=== PATIENT | female | born 1995 | race American Indian/Alaskan Native ===

== ENCOUNTER 2019-06-26 07:23 | Emergency (ER) | payer MEDICAID, OTHER ==
--- NOTE | 2019-06-26 07:48 | Emergency Department Report ---
HPI - General Time Seen by Provider: 06/26/19 07:32 PUI?: No - HPI HPI: Room 2 The patient is a 24-year-old female present with chief complaint of combative behavior. The patient carries no known psychiatric or medical diagnoses and reportedly became violent at home today. EMS states the mother informed them that the patient was acting out at the house behaving violently and "breaking things." The patient was combative with EMS and required sedation with Benadryl 50 mg, Haldol 5 mg and Versed 5 mg prior to arrival. Patient is sedated and slow to respond upon arrival to the ED. Patient complains of a headache. ED Past Medical Hx - Past Medical History Previous Medical History?: No Hx Asthma: Yes - Surgical History Past Surgical History?: No - Family History Family history: no significant - Social History Smoking Status: Never Smoker Substance Use Type: None - Medications Home Medications: Home Medications Medication Instructions Recorded Confirmed Last Taken Type No Known Home Medications [No 06/26/19 06/26/19 Unknown History Reported Home Medications] ED Review of Systems ROS: Stated complaint: MH EVAL Other details as noted in HPI Neurological: headache Psychiatric: other (Violent behavior) Physical Exam - Physical Exam Vital Signs: Vital Signs 06/26/19 06/26/19 06/26/19 07:48 14:20 18:24 Temperature 98 F 98.7 F Pulse Rate 90 71 90 Respiratory 16 18 20 Rate Blood Pressure 110/69 Blood Pressure 112/72 110/74 [Left] O2 Sat by Pulse 96 100 100 Oximetry 06/26/19 06/27/19 19:40 01:00 Temperature 98.4 F 98.4 F Pulse Rate 104 H 86 Respiratory 18 18 Rate Blood Pressure Blood Pressure 120/63 99/71 [Left] O2 Sat by Pulse 99 99 Oximetry Physical Exam: GENERAL: The patient is well-developed well-nourished female lying on stretcher not appearing to be in acute distress. Appears groggy but responds to questions occasionally HEENT: Normocephalic. Atraumatic. Extraocular motions are intact. Patient has moist mucous membranes. NECK: Supple. Trachea midline CHEST/LUNGS: Clear to auscultation. There is no respiratory distress noted. HEART/CARDIOVASCULAR: Regular. There is no tachycardia. There is no gallop rub or murmur. ABDOMEN: Abdomen is soft, nontender. Patient has normal bowel sounds. There is no abdominal distention. SKIN: There is no rash. There is no edema. There is no diaphoresis. NEURO: The patient is asleep but awakens with tactile stimuli. The patient is cooperative. The patient has no focal neurologic deficits. The patient has normal speech MUSCULOSKELETAL: There is no evidence of acute injury. ED Medical Decision Making - Lab Data Result diagrams: 06/26/19 07:50 06/26/19 07:50 Laboratory Tests 06/26/19 06/26/19 06/26/19 07:50 07:50 07:50 WBC 5.5 RBC 4.58 Hgb 11.7 Hct 36.0 MCV 79 MCH 26 L MCHC 33 RDW 14.5 Plt Count 272 Lymph % (Auto) 14.0 Preble % (Auto) 5.9 Eos % (Auto) 0.2 Baso % (Auto) 0.3 Lymph # 0.8 L Preble # 0.3 Eos # 0.0 Baso # 0.0 Seg Neutrophils % 79.6 H Seg Neutrophils # 4.4 Sodium 139 Potassium 3.3 L Chloride 101.0 Carbon Dioxide 19 L Anion Gap 22 BUN 8 Creatinine 0.9 Estimated GFR > 60 BUN/Creatinine Ratio 9 Glucose 103 H Calcium 9.3 Total Bilirubin 0.60 AST 17 ALT 10 Alkaline Phosphatase 36 Total Protein 7.9 Albumin 4.5 Albumin/Globulin Ratio 1.3 TSH 2.010 Free T4 1.51 H HCG, Qual Urine Color Urine Turbidity Urine pH Ur Specific Edwards Urine Protein Urine Glucose (UA) Urine Ketones Urine Blood Urine Nitrite Urine Bilirubin Urine Urobilinogen Ur Leukocyte Esterase Urine WBC (Auto) Urine RBC (Auto) U Epithel Cells (Auto) Urine Bacteria (Auto) Urine Mucus Salicylates Urine Opiates Screen Urine Methadone Screen Acetaminophen Ur Barbiturates Screen Ur Phencyclidine Scrn Ur Amphetamines Screen U Benzodiazepines Scrn Urine Cocaine Screen U Marijuana (THC) Screen Drugs of Abuse Note Plasma/Serum Alcohol 06/26/19 06/26/19 06/26/19 07:50 07:50 07:50 WBC RBC Hgb Hct MCV MCH MCHC RDW Plt Count Lymph % (Auto) Preble % (Auto) Eos % (Auto) Baso % (Auto) Lymph # Preble # Eos # Baso # Seg Neutrophils % Seg Neutrophils # Sodium Potassium Chloride Carbon Dioxide Anion Gap BUN Creatinine Estimated GFR BUN/Creatinine Ratio Glucose Calcium Total Bilirubin AST ALT Alkaline Phosphatase Total Protein Albumin Albumin/Globulin Ratio TSH Free T4 HCG, Qual Urine Color Urine Turbidity Urine pH Ur Specific Edwards Urine Protein Urine Glucose (UA) Urine Ketones Urine Blood Urine Nitrite Urine Bilirubin Urine Urobilinogen Ur Leukocyte Esterase Urine WBC (Auto) Urine RBC (Auto) U Epithel Cells (Auto) Urine Bacteria (Auto) Urine Mucus Salicylates < 0.3 L Urine Opiates Screen Urine Methadone Screen Acetaminophen < 5.0 L Ur Barbiturates Screen Ur Phencyclidine Scrn Ur Amphetamines Screen U Benzodiazepines Scrn Urine Cocaine Screen U Marijuana (THC) Screen Drugs of Abuse Note Plasma/Serum Alcohol < 0.01 06/26/19 06/26/19 06/26/19 07:50 15:00 15:00 WBC RBC Hgb Hct MCV MCH MCHC RDW Plt Count Lymph % (Auto) Preble % (Auto) Eos % (Auto) Baso % (Auto) Lymph # Preble # Eos # Baso # Seg Neutrophils % Seg Neutrophils # Sodium Potassium Chloride Carbon Dioxide Anion Gap BUN Creatinine Estimated GFR BUN/Creatinine Ratio Glucose Calcium Total Bilirubin AST ALT Alkaline Phosphatase Total Protein Albumin Albumin/Globulin Ratio TSH Free T4 HCG, Qual Negative Urine Color Yellow Urine Turbidity Clear Urine pH 6.0 Ur Specific Edwards 1.008 Urine Protein 30 mg/dl Urine Glucose (UA) Neg Urine Ketones Tr Urine Blood Neg Urine Nitrite Neg Urine Bilirubin Neg Urine Urobilinogen < 2.0 Ur Leukocyte Esterase Neg Urine WBC (Auto) 3.0 Urine RBC (Auto) 1.0 U Epithel Cells (Auto) 3.0 Urine Bacteria (Auto) 1+ Urine Mucus Few Salicylates Urine Opiates Screen Presumptive negative Urine Methadone Screen Presumptive negative Acetaminophen Ur Barbiturates Screen Presumptive negative Ur Phencyclidine Scrn Presumptive negative Ur Amphetamines Screen Presumptive negative U Benzodiazepines Scrn Presumptive positive Urine Cocaine Screen Presumptive negative U Marijuana (THC) Screen Presumptive positive Drugs of Abuse Note Disclamer Plasma/Serum Alcohol - Radiology Data Radiology results: report reviewed (CT Head), image reviewed (CT head) [facility] [address] [place] [address] Cat Scan Report Signed Patient: BRIDGET TRAYLOR MR#: [id number] : 1995 Acct:[id number] Age/Sex: 24 / F ADM Date: 06/26/19 Loc: ED Attending Dr: Ordering Physician: NORMAN COUCH MD Date of Service: 06/26/19 Procedure(s): CT head/brain wo con Accession Number(s): [id number] cc: NORMAN COUCH MD CT head without contrast INDICATION : Violent behavior-medical Clearance Psych. TECHNIQUE: Axial imaging performed from the skull apex through the skull base without the use of contrast. All CT scans at this location are performed using CT dose reduction for ALARA by means of automated exposure control. COMPARISON: None FINDINGS: Parenchyma: No acute intracranial hemorrhage or parenchymal abnormality. There is a 5 mm rounded slightly hyperdense structure in the midline involving the third ventricle on axial image 12 of series 2, most likely a colloid cyst. Ventricles: Ventricles are normal in size and appear symmetric. Soft tissues: Soft tissues including the orbits appear normal. Bones: No acute osseous abnormality. Sinuses: Sinuses and mastoid air cells are clear. IMPRESSION: No acute abnormality. 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 Signer Name: Claudio Kolb MD Signed: 06/26/2019 9:21 AM Workstation Name: [id number] Transcribed By: STACI Dictated By: Claudio Kolb MD Electronically Authenticated By: Claudio Kolb MD Signed Date/Time: 06/26/19920 DD/ 6 TD/TT: - Differential Diagnosis Altered mental status, violent behavior, schizophrenia, bipolar disorder, Critical care attestation.: If time is entered above; I have spent that time in minutes in the direct care of this critically ill patient, excluding procedure time. ED Disposition Clinical Impression: Combative behavior Disposition: DC/TX-70 ANOTHER TYPE HLTHCARE Is pt being admited?: No Does the pt Need Aspirin: No Condition: Stable Referrals: PRIMARY CARE, [Primary Care Provider] - 3-5 Days
[2019-06-26 08:06] LABS: Basophils % (Auto) 0.3 % (0.0-1.8); Eosinophils % (Auto) 0.2 % (0.0-4.3); Hemoglobin 11.7 gm/dl (10.1-14.3); Lymphocytes # (Auto) 0.8 K/mm3 (1.2-5.4); Mean Corpuscular HGB Conc 33 % (30-34); Mean Corpuscular Volume 79 fl (79-97); Monocytes # (Auto) 0.3 K/mm3 (0.0-0.8); Monocytes % (Auto) 5.9 % (0.0-7.3); Platelet Count 272 K/mm3 (140-440); Red Blood Count 4.58 M/mm3 (3.65-5.03); Red Cell Distribution Width 14.5 % (13.2-15.2)
[2019-06-26 08:33] LABS: Alanine Aminotransferase 10 units/L (7-56); Albumin 4.5 g/dL (3.9-5); BUN/Creatinine Ratio 9; Blood Urea Nitrogen 8 mg/dL (7-17); Calcium 9.3 mg/dL (8.4-10.2); Hemolysis Index 25
[2019-06-26 08:40] LABS: Free T4 (Free Thyroxine) 1.51 ng/dL (0.76-1.46)
[2019-06-26] MEDS ORDERED: POTASSIUM CHLORIDE ER 20 MEQ TAB PO ONE (08:49)
--- NOTE | 2019-06-26 09:25 | Cat Scan Report ---
CT head without contrast INDICATION : Violent behavior-medical Clearance Psych. TECHNIQUE: Axial imaging performed from the skull apex through the skull base without the use of con trast. All CT scans at this location are performed using CT dose reduction for ALARA by means of aut omated exposure control. COMPARISON: None FINDINGS: Parenchyma: No acute intracranial hemorrhage or parenchymal abnormality. There is a 5 mm rounded sli ghtly hyperdense structure in the midline involving the third ventricle on axial image 12 of series 2 , most likely a colloid cyst. Ventricles: Ventricles are normal in size and appear symmetric. Soft tissues: Soft tissues including the orbits appear normal. Bones: No acute osseous abnormality. Sinuses: Sinuses and mastoid air cells are clear. IMPRESSION: No acute abnormality. 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 Signer Name: Claudio Kolb MD Signed: 06/26/2019 9:21 AM Workstation Name: [id number]
[2019-06-26 15:25] LABS: Amphetamine Screen,Urine PRESUMPTIVE NEGATIVE; Cocaine Screen,Urine PRESUMPTIVE NEGATIVE; Methadone Screen,Urine PRESUMPTIVE NEGATIVE; Opiate Screen,Urine PRESUMPTIVE NEGATIVE
[2019-06-26 15:37] LABS: Bacteria,Urine 1+ /HPF (Negative); Bilirubin,Urine NEG (Negative); Blood,Urine NEG (Negative); Color,Urine Yellow (Yellow); Mucus,Urine FEW /HPF; Urobilinogen,Urine < 2.0 mg/dL (<2.0)
[2019-06-26 15:38] LABS: Benzodiazepines Screen,Urine PRESUMPTIVE POSITIVE; Cannabinoid Screen,Urine PRESUMPTIVE POSITIVE
[2019-06-27 02:17] VITALS: BP 99/71
== END 2019-06-27 01:00 | disposition other institution (70) ==
LOC: ED 07:23
DX: R46.2 Strange and inexplicable behavior (principal); R51 Headache; J45.909 Unspecified asthma, uncomplicated; Z79.899 Other long term (current) drug therapy
CPT/HCPCS: 36415; 70450; 80053; 80307; 80320; 81001; 84439; 84443; 84703; 85025; G0480

== ENCOUNTER 2019-07-23 05:35 | Emergency (ER) | payer MEDICAID ==
[2019-07-23] MEDS ORDERED: ZIPRASIDONE MESYLATE 20 MG VIAL IM PRN (06:52)
[2019-07-23 07:01] LABS: Bilirubin,Urine NEG (Negative); Blood,Urine NEG (Negative); Color,Urine Yellow (Yellow); Mucus,Urine FEW /HPF; Protein,Urine <15 mg/dL mg/dL (Negative); Urobilinogen,Urine < 2.0 mg/dL (<2.0)
[2019-07-23 07:08] LABS: Amphetamine Screen,Urine PRESUMPTIVE NEGATIVE; Benzodiazepines Screen,Urine PRESUMPTIVE NEGATIVE; Cocaine Screen,Urine PRESUMPTIVE NEGATIVE; Methadone Screen,Urine PRESUMPTIVE NEGATIVE; Opiate Screen,Urine PRESUMPTIVE NEGATIVE
--- NOTE | 2019-07-23 07:23 | Emergency Department Report ---
ED Psych HPI - General Chief Complaint: Psych Stated Complaint: CAITLIN JAIME Time Seen by Provider: 07/23/19 06:27 Source: EMS Mode of arrival: Ambulatory - History of Present Illness Initial Comments: This is a 24-year-old female who although copacetic right now appears to be delusional and minimizing her psychiatric condition. He states he does not know why she is here right now. She states that she has a depression. However, she appears to be delusional stating that her baby is due in September. According to the records she was transported via EMS after her family dialed 911. She was "punching the air". Patient cannot tell me what medication she has been previously prescribed. However, she is now noncompliant. She is able to tell me that she was admitted to [facility] in May. Complaint: other (Delusional and agitated) -: unknown (Limited information available to me) Associated Psychiatric Symptoms: delusions History of same: Yes Quality: intermittent Improves With: none Worsens With: none Associated Symptoms: denies other symptoms Treatments Prior to Arrival: none, placed on mental he - Related Data Home Medications Medication Instructions Recorded Confirmed Last Taken No Known Home Medications [No 06/26/19 07/23/19 Unknown Reported Home Medications] Allergies Allergy/AdvReac Type Severity Reaction Status Date / Time No Known Allergies Allergy Verified 07/23/19 06:13 ED Review of Systems ROS: Stated complaint: CAITLIN EVAVERY Other details as noted in HPI Comment: Unobtainable due to pts medical conditions (Patient has no active complaints) ED Past Medical Hx - Past Medical History Hx Psychiatric Treatment: Yes ( Depression) Hx Asthma: Yes - Social History Smoking Status: Never Smoker Substance Use Type: None - Medications Home Medications: Home Medications Medication Instructions Recorded Confirmed Last Taken Type No Known Home Medications [No 06/26/19 07/23/19 Unknown History Reported Home Medications] ED Physical Exam - General Limitations: No Limitations General appearance: alert, in no apparent distress - Head Head exam: Present: atraumatic, normocephalic - Eye Eye exam: Present: normal appearance. Absent: scleral icterus - ENT ENT exam: Present: mucous membranes moist - Neck Neck exam: Present: normal inspection - Respiratory Respiratory exam: Present: normal lung sounds bilaterally. Absent: respiratory distress - Cardiovascular Cardiovascular Exam: Present: regular rate, normal rhythm. Absent: systolic murmur, diastolic murmur, rubs, gallop - GI/Abdominal GI/Abdominal exam: Present: soft, normal bowel sounds. Absent: distended, tenderness, guarding, rebound - Extremities Exam Extremities exam: Present: normal inspection - Back Exam Back exam: Present: normal inspection - Neurological Exam Neurological exam: Present: alert, oriented X3, CN II-XII intact. Absent: motor sensory deficit - Psychiatric Psychiatric exam: Present: normal mood, flat affect - Skin Skin exam: Present: warm, dry, intact, normal color. Absent: rash ED Course Vital Signs 07/23/19 07/23/19 07/23/19 06:11 06:30 07:57 Temperature 97.9 F 98.1 F Pulse Rate 97 H 91 H Respiratory 20 18 17 Rate Blood Pressure 129/81 111/74 Blood Pressure [Left] O2 Sat by Pulse 100 99 Oximetry 07/23/19 07/23/19 08:13 09:21 Temperature 98.2 F Pulse Rate 91 H Respiratory 16 17 Rate Blood Pressure Blood Pressure 117/74 [Left] O2 Sat by Pulse 97 Oximetry - Reevaluation(s) Reevaluation #1: Patient has been ordered Geodon as needed. Further information is necessary. I would not be surprised if she requires involuntary confinement. At this point we will let mental health evaluate her. 07/23/19 07:22 ED Medical Decision Making - Lab Data Result diagrams: 07/23/19 07:09 07/23/19 07:09 Critical care attestation.: If time is entered above; I have spent that time in minutes in the direct care of this critically ill patient, excluding procedure time. ED Disposition Clinical Impression: Acute psychosis, Violent behavior Schizophrenia Qualifiers: Schizophrenia type: unspecified Qualified Code(s): F20.9 - Schizophrenia, unspecified Disposition: DC/TX-65 PSY HOSP/PSY UNIT Is pt being admited?: No Does the pt Need Aspirin: No Condition: Stable Referrals: PRIMARY CARE, [Primary Care Provider] - 3-5 Days Time of Disposition: 13:15
[2019-07-23 07:34] LABS: Basophils % (Auto) 0.4 % (0.0-1.8); Eosinophils % (Auto) 0.5 % (0.0-4.3); Hemoglobin 11.2 gm/dl (10.1-14.3); Lymphocytes # (Auto) 1.4 K/mm3 (1.2-5.4); Lymphocytes % (Auto) 22.9 % (13.4-35.0); Mean Corpuscular HGB Conc 33 % (30-34); Mean Corpuscular Volume 79 fl (79-97); Monocytes # (Auto) 0.5 K/mm3 (0.0-0.8); Monocytes % (Auto) 7.3 % (0.0-7.3); Platelet Count 268 K/mm3 (140-440); Red Blood Count 4.29 M/mm3 (3.65-5.03); Red Cell Distribution Width 14.6 % (13.2-15.2)
[2019-07-23 07:41] LABS: Cannabinoid Screen,Urine PRESUMPTIVE POSITIVE
[2019-07-23 08:05] LABS: BUN/Creatinine Ratio 9; Blood Urea Nitrogen 6 mg/dL (7-17); Calcium 9.5 mg/dL (8.4-10.2); Hemolysis Index 2
[2019-07-23 09:25] VITALS: BP 117/74
== END 2019-07-23 14:24 ==
LOC: EEVIPCON 05:35 → ED 05:35
DX: F20.9 Schizophrenia, unspecified (principal); R45.6 Violent behavior; J45.901 Unspecified asthma with (acute) exacerbation; Z79.899 Other long term (current) drug therapy
CPT/HCPCS: 36415; 80048; 80307; 80320; 81001; 84703; 85025; G0480

== ENCOUNTER 2020-03-05 13:14 | Emergency (ER) | payer MEDICAID | END 2020-03-05 15:39 | disposition left against medical advice (07) | LOC: ED 13:14 | DX: Z00.8 Encounter for other general examination (principal); Z53.21 Procedure and treatment not carried out due to patient leaving prior to being seen by health care provider ==

== ENCOUNTER 2021-09-27 14:11 | Emergency (ER) | payer MEDICAID ==
[2021-09-27 17:02] LABS: Blood Urea Nitrogen 13 mg/dL (7-17); Calcium 9.4 mg/dL (8.4-10.2); Hemolysis Index 6
[2021-09-27 17:04] LABS: Basophils % (Auto) 0.5 % (0.0-1.8); Eosinophils # (Auto) 0.1 K/mm3 (0.0-0.4); Hematocrit 32.5 % (30.3-42.9); Hemoglobin 10.8 gm/dl (10.1-14.3); Lymphocytes # (Auto) 1.9 K/mm3 (1.2-5.4); Mean Corpuscular HGB Conc 33 % (30-34); Mean Corpuscular Volume 79 fl (79-97); Monocytes # (Auto) 0.5 K/mm3 (0.0-0.8); Platelet Count 288 K/mm3 (140-440); Red Blood Count 4.13 M/mm3 (3.65-5.03); Red Cell Distribution Width 13.7 % (13.2-15.2)
[2021-09-27 17:08] LABS: BUN/Creatinine Ratio 19
--- NOTE | 2021-09-27 18:11 | Emergency Department Report ---
ED General Adult HPI - General Chief complaint: Psych Stated complaint: SCHIZO EPISODE PUI?: No Time Seen by Provider: 09/27/21 15:37 Source: EMS Mode of arrival: Stretcher Limitations: Other - History of Present Illness Initial comments: PT ARRIVING FROM HOME, WALKED FROM [employer] [place] TO [facility] LAST NIGHT. PT IS TALKING TO SELF, SI. NO PLAN. A/V HALLUCINATIONS. -: Gradual Radiation: non-radiation Associated Symptoms: denies: denies other symptoms, confusion, chest pain, cough, diaphoresis - Related Data Home Medications Medication Instructions Recorded Confirmed Last Taken No Known Home Medications [No 06/26/19 07/23/19 Unknown Reported Home Medications] Allergies Allergy/AdvReac Type Severity Reaction Status Date / Time No Known Allergies Allergy Verified 09/27/21 14:25 ED Review of Systems ROS: Stated complaint: SCHIZO EPISODE Other details as noted in HPI Constitutional: denies: chills, fever Eyes: denies: eye pain, eye discharge, vision change ENT: denies: ear pain, throat pain Respiratory: denies: cough, shortness of breath, wheezing Cardiovascular: denies: chest pain, palpitations Endocrine: no symptoms reported Gastrointestinal: denies: abdominal pain, nausea, diarrhea Genitourinary: denies: urgency, dysuria, discharge Musculoskeletal: denies: back pain, joint swelling, arthralgia Skin: denies: rash, lesions Neurological: denies: headache, weakness, paresthesias Psychiatric: denies: anxiety, depression Hematological/Lymphatic: denies: easy bleeding, easy bruising ED Past Medical Hx - Past Medical History Previous Medical History?: No Hx Hypertension: No Hx Psychiatric Treatment: Yes ( Depression) Hx Asthma: Yes - Social History Smoking Status: Never Smoker Substance Use Type: None - Medications Home Medications: Home Medications Medication Instructions Recorded Confirmed Last Taken Type No Known Home Medications [No 06/26/19 07/23/19 Unknown History Reported Home Medications] ED Physical Exam - General Limitations: Other General appearance: alert, anxious - Head Head exam: Present: atraumatic, normocephalic - Eye Eye exam: Present: normal appearance - ENT ENT exam: Present: mucous membranes moist - Neck Neck exam: Present: normal inspection - Respiratory Respiratory exam: Present: normal lung sounds bilaterally. Absent: respiratory distress - Cardiovascular Cardiovascular Exam: Present: regular rate, normal rhythm. Absent: systolic murmur, diastolic murmur, rubs, gallop - GI/Abdominal GI/Abdominal exam: Present: soft, normal bowel sounds - Extremities Exam Extremities exam: Present: normal inspection - Back Exam Back exam: Present: normal inspection - Neurological Exam Neurological exam: Present: alert, oriented X3 - Psychiatric Psychiatric exam: Present: agitated, anxious, homicidal ideation - Skin Skin exam: Present: warm, dry, intact, normal color. Absent: rash ED Course Vital Signs 09/27/21 09/27/21 09/28/21 14:23 20:00 03:06 Temperature 98.7 F 98.8 F 98.4 F Pulse Rate 71 58 L 57 L Respiratory 18 16 16 Rate Blood Pressure 113/61 104/66 97/44 [Left] O2 Sat by Pulse 99 100 98 Oximetry 09/28/21 09/28/21 09/28/21 10:22 12:37 13:38 Temperature 97.4 F L 98.6 F Pulse Rate 63 65 Respiratory 18 16 Rate Blood Pressure 96/64 119/75 [Left] O2 Sat by Pulse 100 100 99 Oximetry ED Medical Decision Making - Lab Data Result diagrams: 09/27/21 16:28 09/27/21 16:28 Critical care attestation.: If time is entered above; I have spent that time in minutes in the direct care of this critically ill patient, excluding procedure time. ED Disposition Clinical Impression: Suicidal ideation, Psychosis Disposition: [address] [place] [address] Is pt being admited?: No Does the pt Need Aspirin: No Condition: Stable Referrals: PRIMARY CARE, [Primary Care Provider] - 3-5 Days
--- NOTE | 2021-09-28 08:38 | Consultation ---
History of Present Illness - Reason for Consult Consult date: 09/28/21 Reason for consult: psychosis - History of Present Psychiatric Illness The patient was seen today. She is acutely psychotic. She is responding to internal stimuli. She is looking around as if talking to someone. Her insight is poor due to her psychosis. She says she is depressed. She is cussing, and rambling at times. I ask the patient did she have a history of schizophrenia. She says "there we go again with that schizophrenia word." She then starts cursing and talking to people not there. I ask the patient was she suicidal, she just looked from side to side and rambling to herself. PAST PSYCHIATRIC HISTORY: Unable to assess PAST MEDICAL HISTORY: None reported Family Psychiatric History: None reported or documented SOCIAL HISTORY Unable to assess REVIEW OF SYSTEMS Unable to assess MENTAL STATUS EXAMINATION Unable to assess Diagnoses: Schizophrenia Treatment Plan 1013 Abilify 5mg po daily Lexapro 5mg po daily Trazodone 50mg po qhs Sitter: per primary Medical: Per primary Disposition: Recommend acute psychiatric inpatient treatment Will follow. Thanks Case staffed by Dr. Gil Medications and Allergies Allergies Allergy/AdvReac Type Severity Reaction Status Date / Time No Known Allergies Allergy Verified 09/27/21 14:25 Home Medications Medication Instructions Recorded Confirmed Last Taken Type No Known Home Medications [No 06/26/19 07/23/19 Unknown History Reported Home Medications] Mental Status Exam - Vital signs Last Vital Signs Temp 98.4 F 09/28/21 03:06 Pulse 57 L 09/28/21 03:06 Resp 16 09/28/21 03:06 BP 97/44 09/28/21 03:06 Pulse Ox 98 09/28/21 03:06 Results Result Diagrams: 09/27/21 16:28 09/27/21 16:28 Abnormal lab results 09/27/21 09/27/21 09/27/21 Range/Units 16:28 16:28 16:28 MCH 26 L (28-32) pg Lymph % (Auto) 36.0 H (13.4-35.0) % Leslie % (Auto) 10.0 H (0.0-7.3) % Carbon Dioxide 20 L (22-30) mmol/L Salicylates < 0.3 L (2.8-20.0) mg/dL Acetaminophen (10.0-30.0) ug/mL 09/27/21 Range/Units 16:28 MCH (28-32) pg Lymph % (Auto) (13.4-35.0) % Leslie % (Auto) (0.0-7.3) % Carbon Dioxide (22-30) mmol/L Salicylates (2.8-20.0) mg/dL Acetaminophen 5.0 L (10.0-30.0) ug/mL All other labs normal.
[2021-09-28] MEDS ORDERED: ESCITALOPRAM 10 MG TAB PO SCH (10:00)
[2021-09-28] MEDS ORDERED: ARIPiprazole 5 MG TAB PO SCH (10:00)
[2021-09-28 11:24] LABS: Bilirubin,Urine Color Interference (Negative); Color,Urine Red (Yellow)
[2021-09-28 11:25] LABS: Blood,Urine Color Interference (Negative); Protein,Urine Color Interference mg/dL (Negative)
[2021-09-28 11:52] LABS: Amphetamine Screen,Urine Negative; Benzodiazepines Screen,Urine Negative; Cocaine Screen,Urine Negative; Methadone Screen,Urine Negative; Opiate Screen,Urine Negative
[2021-09-28 12:25] LABS: Cannabinoid Screen,Urine Positive
[2021-09-28 12:40] LABS: RBC,Urine > 182.0 /HPF (0.0-6.0); WBC,Urine < 1.0 /HPF (0.0-6.0)
[2021-09-28 12:41] LABS: Mucus,Urine 2+ /HPF
[2021-09-28 12:42] LABS: Bacteria,Urine 1+ /HPF (Negative)
--- NOTE | 2021-09-28 12:56 | Event Note ---
Date: 09/28/21 Patient assessed by me. She is calm and cooperative. Vital signs stable. Chart reviewed. Patient had was written for [address] Rogers. Patient has been accepted for acute inpatient psychiatric hospitalization at [facility].
[2021-09-28 13:39] VITALS: BP 119/75
[2021-09-28] MEDS ORDERED: traZODone 50 MG TAB PO SCH (22:00)
== END 2021-09-28 13:39 ==
LOC: ED 14:11
DX: R45.851 Suicidal ideations (principal); F29 Unspecified psychosis not due to a substance or known physiological condition; Z20.822 Contact with and (suspected) exposure to COVID-19; F32.9 Major depressive disorder, single episode, unspecified; J45.909 Unspecified asthma, uncomplicated
CPT/HCPCS: 36415; 80048; 80307; 81001; 85025; 99285; U0003; 80320; G0480